=== PATIENT | male | born 1935 | race Caucasian/White ===

== ENCOUNTER 2019-12-26 10:18 | Emergency (ER) | payer OTHER ==
[~2019-12-26] VITALS: Ht 167.6 cm; Wt 95.3 kg
[~2019-12-26 10:18] MED LIST: ALLOPURINOL100 MG PO; AMIODARONE HCL200 MG; ASA-EC81 MG PO; ATACAND4 MG PO; BISOPROLOL/HCTZ1 TA3 PO; CARDURA8 MG; Coreg PO; DIOVAN160 M1; DOXAZOSIN MESYLA1 MG PO; LASIX20 MG; LOTREL 10/20 CA1 CAP PO; PLAVIX 75MG PO; Procardia Xl 30MG TAB PO; SENOKOT8.6 MG; SYNTHROID150 MCG; TAMS0.4C; VALSARTAN80 MG
[2019-12-26] MEDS ORDERED: DUI500 PO (12:48)
== END 2019-12-26 13:06 | disposition home or self-care (01) ==
LOC: ER 10:18
DX: L02.212 Cutaneous abscess of back [any part, except buttock and flank] (principal)

== ENCOUNTER 2021-07-24 17:52 | Emergency (ER) | payer OTHER ==
[~2021-07-24] VITALS: Ht 157.5 cm; Wt 94.3 kg
[~2021-07-24 17:52] MED LIST changes: +DUI500 PO
[2021-07-24] MEDS ORDERED: AMLODIPINE BESY10 MG PO (18:06)
[2021-07-24] MEDS ORDERED: METOPROLOL SUC100 MG PO (18:06)
[2021-07-24] MEDS ORDERED: ELIQUIS2.5 MG PO (18:06)
[2021-07-24] MEDS ORDERED: DOXAZOSIN MESYLA8 MG PO (18:06)
[2021-07-24] MEDS ORDERED: DUI500 PO (18:09)
== END 2021-07-24 18:13 | disposition home or self-care (01) ==
LOC: ER 17:52
DX: S81.802A Unspecified open wound, left lower leg, initial encounter (principal); L03.818 Cellulitis of other sites; X58.XXXA Exposure to other specified factors, initial encounter; Y92.9 Unspecified place or not applicable; Z86.79 Personal history of other diseases of the circulatory system